=== PATIENT | female | born 1975 | race Caucasian/White ===

== ENCOUNTER 2020-03-06 17:04 | Outpatient (CLI) | payer OTHER, SELFPAY ==
--- NOTE | ~2020-03-06 | XR_ITS ---
EXAMINATION: XR abdomen/kub 1V DATE: 03/06/2020 17:49 INDICATION: Left flank pain. TECHNIQUE: A supine view of the abdomen on 2 radiographs was obtained. COMPARISON: None. FINDINGS: No suspicious calcifications identified in the abdomen or pelvis. Small amount of gas and stool scatt ered throughout the colon. No dilated gas-filled bowel to suggest obstruction. Bones are unremarkable . IMPRESSION: 1. Normal study. Reviewed, dictated and finalized at location A. IMPRESSION: 1. Normal study.
== END 2020-03-06 17:05 | disposition home or self-care (01) ==
PROVIDERS: PCP Physician Assistant; Visit Provider Physician Assistant
DX: R10.9 Unspecified abdominal pain (principal)
CPT/HCPCS: 74018

== ENCOUNTER 2021-03-17 15:42 | Outpatient (CLI) | payer OTHER, SELFPAY ==
--- NOTE | ~2021-03-17 | MM_ITS ---
EXAMINATION: MM screening kul[facility] BI w yanique HISTORY: Screening TECHNIQUE: Craniocaudal and mediolateral oblique 3-D tomosynthesis images were obtained and synthetic 2-D images were generated. CAD analysis was submitted and interpreted. COMPARISON: No prior mammogram is available for comparison at this institution. BREAST PARENCHYMAL COMPOSITION: There are scattered areas of fibroglandular density. FINDINGS: There is possible subtle architectural distortion upper outer quadrant of the right breast, middle third. There is focal asymmetries in the subareolar location of the left breast. There are no suspicious calcifications. IMPRESSION: 1. Bilateral breast asymmetries. 2. Recommend comparison to previous outside mammograms to assess stability. BI-RADS Category 0: Incomplete: Needs additional imaging evaluation. Reviewed, dictated and finalized at location A.
== END 2021-03-17 15:43 | disposition home or self-care (01) ==
LOC: ANHIMG 15:47
PROVIDERS: PCP Physician Assistant; Visit Provider Physician Assistant
DX: Z12.31 Encounter for screening mammogram for malignant neoplasm of breast (principal); R92.8 Other abnormal and inconclusive findings on diagnostic imaging of breast
CPT/HCPCS: 77063; 77067

== ENCOUNTER 2021-04-15 12:44 | Outpatient (CLI) | payer OTHER, SELFPAY ==
--- NOTE | ~2021-04-15 | MM_ITS ---
EXAMINATION: MM diagnostic mammo unilat LT HISTORY: Focal subareolar asymmetry reported at left breast on 03/09/2021 screening mammogram TECHNIQUE: Additional 3-D tomosynthesis images of the left breast were performed and synthetic 2-D im ages were generated. CAD analysis was submitted and interpreted. COMPARISON: 03/17/2021 and 12/02/2018 bilateral digital screening mammogram examinations FINDINGS: No suspicious mass, architectural distortion, malignant constipation, skin thickening or re traction or significant new or developing density of the left breast is evident compared to prior kulwant mograms dating back to 12/02/2018 IMPRESSION: 1. No mammographic evidence of malignancy 2. Routine annual mammographic screening is recommended. BI-RADS Category 1: Negative Reviewed, dictated and finalized at location A.
== END 2021-04-15 12:45 | disposition home or self-care (01) ==
PROVIDERS: PCP Physician Assistant; Visit Provider Physician Assistant
DX: R92.8 Other abnormal and inconclusive findings on diagnostic imaging of breast (principal)
CPT/HCPCS: 77065